=== PATIENT | female | born 1940 | race Caucasian/White ===

== ENCOUNTER 2017-10-23 09:48 | Emergency (ER) | payer OTHER ==
--- NOTE | 2017-10-23 10:41 | EKG ---
Test Date: 2017-10-23 Test Time: 10:28:50 Farm Tractor Operator: LILLIAN MEASUREMENT RESULTS: Intervals: Rate: 96 CA: 204 QRSD: 138 QT: 384 QTc: 485 [place]: P: 51 CA: 204 QRS: 94 T: -16 INTERPRETIVE STATEMENTS: Normal sinus rhythm Right bundle branch block T wave abnormality, consider inferior ischemia Abnormal ECG Compared to ECG 03/29/2016 18:28:24 T-wave abnormality now present Possible ischemia now present First degree AV block no longer present Electronically Signed On 10-23-17 10:40:44 CDT by Bear Douglas
[2017-10-23] MEDS ORDERED: ALBUTEROL 2.5 MG/3 ML NEB SOL ONE ×2 (10:55→12:27)
[2017-10-23] MEDS ORDERED: ASPIRIN 81 MG CHEWABLE TABLET ONE ×2 (10:55→11:13)
[2017-10-23] MEDS ORDERED: IPRATROPIUM BROM 0.5MG/2.5ML ONE (10:55)
[2017-10-23 11:10] LABS: Absolute Lymphocytes (CBC) 1.6 K/uL (0.7-4.9); Absolute Monocytes 0.8 K/uL (0.1-1.3); Absolute Neutrophil 11.4 K/uL (1.8-8.0); Basophils % 0.1 % (0-1.3); Eosinophils % 0.2 % (0-4.4); Hematocrit 41.8 % (36.0-45.0); Lymphocytes % 11.6 % (15.3-44.8); MCV 88.5 fL (80-100); MPV 8.4 fL (7.6-11.3); Monocytes % 6.1 % (3.3-12.3); RBC Red Blood Cell Count 4.72 M/uL (3.86-4.86)
[2017-10-23 11:13] LABS: Protime INR 1.14
--- NOTE | 2017-10-23 11:16 | RAD REPORT ---
EXAM DESCRIPTION: Sara Dickinson (2 Views)10/23/2017 10:59 am CLINICAL HISTORY: Cough COMPARISON: 2007 FINDINGS: A nodular opacity overlying the right lung apex is unchanged from the prior exam and like ly is benign. The lungs appear clear of acute infiltrate. The heart is normal size IMPRESSION: No acute abnormalities displayed
[2017-10-23 11:23] LABS: Albumin 3.6 g/dL (3.4-5.0); Bilirubin Direct 0.2 mg/dL (0-0.2); Bilirubin Total 0.7 mg/dL (0.2-1.0); Magnesium 1.9 mg/dL (1.8-2.4); Potassium 3.7 mmol/L (3.5-5.1)
[2017-10-23] MEDS ORDERED: CEFTRIAXONE/SWI 1gm 2 GM/20 ML SYR ONE (12:01)
[2017-10-23] MEDS ORDERED: ONDANSETRON 4 MG/2 ML VIAL ONE (12:27)
[2017-10-23] MEDS ORDERED: AZITHROMYCIN IV 500 MG in NA CHLORIDE 0.9% 250 ML IVPB ONE (13:00)
--- NOTE | 2017-10-23 13:27 | ER ---
Nurse's Notes [facility] Name: Kourtney Hassan Age: 77 yrs Sex: Female : 1940 Arrival Date: 10/23/2017 Time: 09:52 Bed 23 Private MD: Diagnosis: Acute Upper Respiaratory Infection Presentation: 10/23 09:53 Presenting complaint: EMS states: not feeling well for 3-4 days. c/o productive cough ss and intermittent dizziness. Transition of care: patient was not received from another setting of care. Onset of symptoms was October 20, 2017. Risk Assessment: Do you want to hurt yourself or someone else? Patient reports no desire to harm self or others. Care prior to arrival: None. 09:53 Method Of Arrival: EMS: [facility] ss 09:53 Acuity: ROSETTE 3 ss 12:56 Initial Sepsis Screen: Does the patient meet any 2 criteria? RR > 20 per min. HR > 90 ed1 bpm. Yes Does the patient have a suspected source of infection? Yes: Productive cough/pneumonia If YES to both, name of provider notified: Augie Hand MD. Triage Assessment: 10:00 General: Appears in no apparent distress. uncomfortable, Behavior is calm. Pain: Denies aj1 pain. Historical: - Allergies: 09:56 Toradol; ss - Home Meds: 09:56 gabapentin oral oral [Active]; losartan oral oral [Active]; ss - PMHx: 09:56 Glaucoma; Hypertension; neuropathy; ss - PSHx: 09:56 Hysterectomy; Appendectomy; foot surgery; ss - Immunization history:: Adult Immunizations up to date. - Social history:: Smoking status: Patient/guardian denies using tobacco. - Ebola Screening: : Patient denies exposure to infectious person Patient denies travel to an Ebola-affected area in the 21 days before illness onset. - Family history:: not pertinent. - Hospitalizations: : No recent hospitalization is reported. Screenin:39 Abuse screen: Denies threats or abuse. Denies injuries from another. Nutritional aj1 screening: No deficits noted. Tuberculosis screening: No symptoms or risk factors identified. 13:39 Fall Risk No fall in past 12 months (0 pts). No secondary diagnosis (0 pts). IV access ed1 (20 points). Ambulatory Aid- None/Bed Rest/Nurse Assist (0 pts). Gait- Weak (10 pts.). Mental Status- Oriented to own ability (0 pts). Total Núñez Fall Scale indicates Low Risk Score (25-44 pts). Fall prevention measures have been instituted. Side Rails Up X 2 Frequent Obs/Assesments occuring Family Present and informed to notify staff if they need to leave bedside As available Patient and Family Educated on Fall Prevention Program and strategies. Assessment: 10:00 General: Appears in no apparent distress. uncomfortable, Behavior is calm, cooperative, aj1 appropriate for age. Pain: Denies pain. Neuro: Level of Consciousness is awake, alert, obeys commands, Oriented to person, place, time, situation, Speech is normal, Facial symmetry appears normal. Cardiovascular: Denies chest pain, shortness of breath, Heart tones S1 S2 present Patient's skin is warm and dry. Rhythm is sinus tachycardia. Respiratory: Reports cough that is productive, Airway is patent Respiratory effort is even, unlabored, Respiratory pattern is regular, symmetrical, Breath sounds are coarse Breath sounds with crackles Breath sounds with wheezes bilaterally. Denies shortness of breath. GI: No signs and/or symptoms were reported involving the gastrointestinal system. : No signs and/or symptoms were reported regarding the genitourinary system. EENT: No signs and/or symptoms were reported regarding the EENT system. Derm: No signs and/or symptoms reported regarding the dermatologic system. Skin is pink, warm \T\ dry. normal. Musculoskeletal: No signs and/or symptoms reported regarding the musculoskeletal system. Circulation, motion, and sensation intact. 11:13 Reassessment: Patient appears in no apparent distress at this time. No changes from aj1 previously documented assessment. Patient and/or family updated on plan of care and expected duration. Pain level reassessed. Patient is alert, oriented x 3, equal unlabored respirations, skin warm/dry/pink. 12:34 Reassessment: Patient appears in no apparent distress at this time. No changes from aj1 previously documented assessment. Patient and/or family updated on plan of care and expected duration. Pain level reassessed. Patient is alert, oriented x 3, equal unlabored respirations, skin warm/dry/pink. Patient states that she is feeling better, she feels like she is coughing less, and less hard when she does cough. 13:39 Reassessment: Patient appears in no apparent distress at this time. Patient and/or ed1 family updated on plan of care and expected duration. Pain level reassessed. Patient is alert, oriented x 3, equal unlabored respirations, skin warm/dry/pink. Patient denies pain at this time. Patient states feeling better. Patient states symptoms have improved. Vital Signs: 10:00 BP 147 / 75; Pulse 106; Resp 22; Temp 98.3(O); Pulse Ox 93% on R/A; Pain 0/10; aj1 11:06 BP 133 / 87; Pulse 96; Resp 20; Pulse Ox 95% on R/A; mt 12:01 BP 139 / 79; Pulse 87; Resp 22; Pulse Ox 93% on R/A; mt 12:31 BP 148 / 83; Pulse 75; Resp 19; Pulse Ox 100% on Nebulizer Mask; mt 13:06 BP 127 / 67; Pulse 88; Resp 20; Pulse Ox 98% on R/A; mt ED Course: 09:52 Patient arrived in ED. em1 09:55 Triage completed. ss 09:59 Augie Hand MD is Attending Physician. wa 10:00 No provider procedures requiring assistance completed. aj1 10:00 Arm band placed on. aj1 10:00 Patient has correct armband on for positive identification. Bed in low position. Call aj1 light in reach. Side rails up X 1. barrel washer machine on. Pulse ox on. NIBP on. 10:34 Initial lab(s) drawn, by az, sent to lab. First set of blood cultures drawn Right jp3 Forarm. 10:35 Melody Valera, RN is Primary Nurse. aj1 10:37 EKG done, by farm technician. reviewed by Augie Hand MD. at1 10:55 Inserted saline lock: 22 gauge in right forearm, using aseptic technique. Blood jp3 collected. 10:56 XRAY Chest Pa And Lat (2 Views) In Process Unspecified. EDMS 11:05 Second set of blood cultures drawn Left A/C via 23-gauge butterfly needle. jp3 12:56 Primary Nurse role handed off by Melody Valera, RN ed1 12:56 Noemi Sanchez LVN is Primary Nurse. ed1 13:39 IV discontinued, intact, bleeding controlled, No redness/swelling at site. Pressure ed1 dressing applied. Administered Medications: 11:13 Drug: Albuterol 2.5 mg Route: Inhalation; aj1 11:13 Drug: AtroVENT Aerosol 0.5 mg Route: Inhalation; aj1 11:13 Drug: Aspirin Chewable Tablet 324 mg Route: PO; aj1 13:38 Follow up: Response: No adverse reaction ed1 12:03 Drug: Rocephin - (cefTRIAXone) 2 grams Route: IVPB; Infused Over: 30 mins; Site: right aj1 antecubital; 13:38 Follow up: Response: No adverse reaction; IV Status: Completed infusion ed1 12:33 Drug: Zithromax 500 mg Route: IVPB; Infused Over: 1 hrs; Site: right antecubital; aj1 13:38 Follow up: Response: No adverse reaction; IV Status: Completed infusion ed1 12:33 Drug: Albuterol 2.5 mg Route: Inhalation; aj1 13:38 Not Given (Patient Refused): Zofran 4 mg IVP once; over 2 minutes ed1 Outcome: 13:26 Discharge ordered by MD. vyas 13:39 Discharged to home via wheelchair, with friend. ed1 13:39 Condition: good 13:39 Discharge instructions given to patient, friend, Instructed on discharge instructions, follow up and referral plans. medication usage, Demonstrated understanding of instructions, follow-up care, medications, Prescriptions given X 3. 13:41 Patient left the ED. ed1 Signatures: Dispatcher [employer] EDMS Melody Valera RN RN aj1 Akbar Mcintosh em1 Keli Gracia RN RN ss Noemi Sanchez, MIXING PLACE SUPERVISOR MIXING PLACE SUPERVISOR ed1 Blanca parker, hand i cutter EKG Tank1 Elida Wu mt, William, MD MD wa Pisarski, Jacob jp3 Corrections: (The following items were deleted from the chart) 10:48 10:39 General: Appears in no apparent distress. uncomfortable, Behavior is calm, aj1 cooperative, appropriate for age, aj1 :48 10:39 Pain: Denies pain. aj1 aj1 10:48 10:39 Neuro: Level of Consciousness is awake, alert, obeys commands, Oriented to aj1 person, place, time, situation, Speech is normal, Facial symmetry appears normal, aj1 :48 10:39 Cardiovascular: Denies chest pain, shortness of breath, Heart tones S1 S2 present aj1 Patient's skin is warm and dry. Rhythm is sinus tachycardia aj1 : 10:39 Respiratory: Reports cough that is productive, Airway is patent Respiratory aj1 effort is even, unlabored, Respiratory pattern is regular, symmetrical, Breath sounds are coarse Breath sounds with crackles Breath sounds with wheezes bilaterally. Denies shortness of breath aj1 10:39 GI: No signs and/or symptoms were reported involving the gastrointestinal system. aj1 aj1 10:39 : No signs and/or symptoms were reported regarding the genitourinary system. aj1aj1 : 10:39 EENT: No signs and/or symptoms were reported regarding the EENT system. aj1 aj1 10:39 Derm: No signs and/or symptoms reported regarding the dermatologic system. Skin aj1 is pink, warm \T\ dry. normal, aj1 10:39 Musculoskeletal: No signs and/or symptoms reported regarding the musculoskeletal aj1 system. Circulation, motion, and sensation intact. aj1
--- NOTE | 2017-10-23 13:27 | EDPHYS ---
Physician Documentation [facility] Name: Kourtney Hassan Age: 77 yrs Sex: Female : 1940 Arrival Date: 10/23/2017 Time: 09:52 Bed 23 Private MD: ED Physician Augie Hand HPI: 10/23 13:19 This 77 yrs old Female presents to ER via EMS with complaints of Cough. wa 13:19 The patient or guardian reports cough, that is constant, with productive sputum, that wa is yellow, nasal congestion. denies SOB. admits to fever yesterday. Onset: The symptoms/episode began/occurred 3 day(s) ago. Severity of symptoms: At their worst the symptoms were moderate, in the emergency department the symptoms are actually worse. Modifying factors: The symptoms are alleviated by nothing, the symptoms are aggravated by cough. Associated signs and symptoms: Pertinent positives: fever, nausea, rhinorrhea, Pertinent negatives: chest pain, diarrhea, ear ache, sore throat, vomiting. The patient has not experienced similar symptoms in the past. The patient has not recently seen a physician. Historical: - Allergies: 09:56 Toradol; ss - Home Meds: 09:56 gabapentin oral oral [Active]; losartan oral oral [Active]; ss - PMHx: 09:56 Glaucoma; Hypertension; neuropathy; ss - PSHx: 09:56 Hysterectomy; Appendectomy; foot surgery; ss - Immunization history:: Adult Immunizations up to date. - Social history:: Smoking status: Patient/guardian denies using tobacco. - Ebola Screening: : Patient denies exposure to infectious person Patient denies travel to an Ebola-affected area in the 21 days before illness onset. - Family history:: not pertinent. - Hospitalizations: : No recent hospitalization is reported. ROS: 13:21 Constitutional: Negative for fever, chills, and weight loss, Eyes: Negative for injury, wa pain, redness, and discharge, ENT: Negative for injury, pain, and discharge, Neck: Negative for injury, pain, and swelling, Cardiovascular: Negative for chest pain, palpitations, and edema, Abdomen/GI: Negative for abdominal pain, nausea, vomiting, diarrhea, and constipation, Back: Negative for injury and pain, : Negative for injury, bleeding, discharge, and swelling, MS/Extremity: Negative for injury and deformity, Skin: Negative for injury, rash, and discoloration, Neuro: Negative for headache, weakness, numbness, tingling, and seizure. 13:21 Respiratory: Positive for cough, with yellow sputum, Negative for shortness of breath. 13:21 All other systems are negative. Exam: 13:21 Constitutional: This is a well developed, well nourished patient who is awake, alert, wa and in no acute distress. Head/Face: Normocephalic, atraumatic. Eyes: Pupils equal round and reactive to light, extra-ocular motions intact. Lids and lashes normal. Conjunctiva and sclera are non-icteric and not injected. Cornea within normal limits. Periorbital areas with no swelling, redness, or edema. ENT: Nares patent. No nasal discharge, no septal abnormalities noted. Tympanic membranes are normal and external auditory canals are clear. Oropharynx with no redness, swelling, or masses, exudates, or evidence of obstruction, uvula midline. Mucous membranes moist. Neck: Trachea midline, no thyromegaly or masses palpated, and no cervical lymphadenopathy. Supple, full range of motion without nuchal rigidity, or vertebral point tenderness. No Meningismus. Chest/axilla: Normal chest wall appearance and motion. Nontender with no deformity. No lesions are appreciated. Cardiovascular: Regular rate and rhythm with a normal S1 and S2. No gallops, murmurs, or rubs. Normal PMI, no JVD. No pulse deficits. Abdomen/GI: Soft, non-tender, with normal bowel sounds. No distension or tympany. No guarding or rebound. No evidence of tenderness throughout. Back: No spinal tenderness. No costovertebral tenderness. Full range of motion. Skin: Warm, dry with normal turgor. Normal color with no rashes, no lesions, and no evidence of cellulitis. MS/ Extremity: Pulses equal, no cyanosis. Neurovascular intact. Full, normal range of motion. Neuro: Awake and alert, GCS 15, oriented to person, place, time, and situation. Cranial nerves II-XII grossly intact. Motor strength 5/5 in all extremities. Sensory grossly intact. Cerebellar exam normal. Normal gait. Psych: Awake, alert, with orientation to person, place and time. Behavior, mood, and affect are within normal limits. 13:21 Respiratory: the patient does not display signs of respiratory distress, Respirations: normal, Breath sounds: breath sounds diminished on both sides. Vital Signs: 10:00 BP 147 / 75; Pulse 106; Resp 22; Temp 98.3(O); Pulse Ox 93% on R/A; Pain 0/10; aj1 11:06 BP 133 / 87; Pulse 96; Resp 20; Pulse Ox 95% on R/A; mt 12:01 BP 139 / 79; Pulse 87; Resp 22; Pulse Ox 93% on R/A; mt 12:31 BP 148 / 83; Pulse 75; Resp 19; Pulse Ox 100% on Nebulizer Mask; mt 13:06 BP 127 / 67; Pulse 88; Resp 20; Pulse Ox 98% on R/A; mt MDM: 09:59 Patient medically screened. de 13:22 Differential Diagnosis: Obstructed Airway Bronchitis Upper Respiratory Infection wa Allergic Rhinitis Viral Syndrome Pneumonia. Data reviewed: vital signs, nurses notes, lab test result(s). 13:24 Test interpretation: by ED physician or midlevel provider: labs noted for elevated BUN wa and leukocytosis. CXR negative. . Response to treatment: the patient's symptoms have markedly improved after treatment. ED course: had nebs. treated empirically with abx. states feels much better. 13:30 Test interpretation: by ED physician or midlevel provider: EKG: R 96. RBBB with strain. 10/23 10:15 Order name: Blood Culture Adult (2) 10/23 10:15 Order name: BMP; Complete Time: 11:47 10/23 10:15 Order name: CBC with Diff; Complete Time: 11:47 10/23 10:15 Order name: CPK; Complete Time: 11:49 10/23 10:15 Order name: Hepatic Function; Complete Time: 11:48 10/23 10:15 Order name: Magnesium; Complete Time: 11:49 10/23 10:15 Order name: XRAY Chest Pa And Lat (2 Views); Complete Time: 11:48 10/23 10:15 Order name: PT-INR; Complete Time: 11:48 10/23 10:15 Order name: Troponin (emerg Dept Use Only); Complete Time: 11:49 10/23 10:15 Order name: EKG; Complete Time: 10:16 10/23 10:15 Order name: Cardiac monitoring; Complete Time: de 10/23 10:15 Order name: EKG - Nurse/Tech; Complete Time: de 10/23 10:15 Order name: IV Saline Lock; Complete Time: de 10/23 10:15 Order name: Labs collected and sent; Complete Time: de 10/23 10:15 Order name: O2 Per Protocol; Complete Time: de 10/23 10:15 Order name: O2 Sat Monitoring; Complete Time: : de Administered Medications: 11:13 Drug: Albuterol 2.5 mg Route: Inhalation; aj1 11:13 Drug: AtroVENT Aerosol 0.5 mg Route: Inhalation; aj1 11:13 Drug: Aspirin Chewable Tablet 324 mg Route: PO; aj1 13:38 Follow up: Response: No adverse reaction ed1 12:03 Drug: Rocephin - (cefTRIAXone) 2 grams Route: IVPB; Infused Over: 30 mins; Site: right aj1 antecubital; 13:38 Follow up: Response: No adverse reaction; IV Status: Completed infusion ed1 12:33 Drug: Zithromax 500 mg Route: IVPB; Infused Over: 1 hrs; Site: right antecubital; aj1 13:38 Follow up: Response: No adverse reaction; IV Status: Completed infusion ed1 12:33 Drug: Albuterol 2.5 mg Route: Inhalation; aj1 13:38 Not Given (Patient Refused): Zofran 4 mg IVP once; over 2 minutes ed1 Disposition: 10/23/17 13:26 Discharged to Home. Impression: Acute Upper Respiaratory Infection. - Condition is Stable. - Discharge Instructions: Upper Respiratory Infection, Adult, [id number], Cough, Adult, [id number]-[id number]. - Prescriptions for Zithromax Z- Alcides 250 mg Oral Tablet - take 1 tablet by ORAL route as directed for 5 days Day 1 - take two (2) tablets one time. Day 2, 3, 4 , 5 take one (1) tablet once daily.; 6 tablet. Prednisone 20 mg Oral Tablet - take 2 tablets by ORAL route once daily for 3 days; 6 tablet. Albuterol Sulfate 90 mcg/actuation - inhale 1-2 puff by INHALATION route every 4-6 hours; 1 Inhaler. - Medication Reconciliation Form, Thank You Letter, Antibiotic Education, Prescription Opioid Use form. - Follow up: Private Physician; When: 2 - 3 days; Reason: Re-evaluation by your physician. - Problem is new. - Symptoms have improved. - Notes: take medicines as prescribed. follow up with your doctor or return here immediately for rapidly worsening concerns Signatures: Dispatcher [employer] EDNH Melody Valera RN RN aj1 Keli Garcia RN RN Noemi Sanchez LVN GUARD DRIVER ed1 Augie Hand MD MD wa Corrections: (The following items were deleted from the chart) 13:41 13:26 10/23/2017 13:26 Discharged to Home. Impression: Acute Upper Respiaratory ed1 Infection. Condition is Stable. Forms are Medication Reconciliation Form, Thank You Letter, Antibiotic Education, Prescription Opioid Use. Follow up: Private Physician; When: 2 - 3 days; Reason: Re-evaluation by your physician. Problem is new. Symptoms have improved. wa
[2017-10-23 16:01] VITALS: TEMP 98.3
[2017-10-23 16:06] VITALS: BP 127/67; O2SAT 98
== END 2017-10-23 13:41 | disposition home or self-care (01) ==
LOC: ER 09:48
DX: J06.9 Acute upper respiratory infection, unspecified (principal); I10 Essential (primary) hypertension; Z88.6 Allergy status to analgesic agent
CPT/HCPCS: 36415; 71046; 80048; 80076; 82550; 83735; 84484; 85025; 85610; 87040 ×2; 93005; 96365; 96368; 99285; J0456; J0696; J2405

== ENCOUNTER 2021-07-21 19:30 | Emergency (ER) | payer OTHER ==
--- OUTSIDE RECORDS SUMMARY | 2021-07-21 19:33 | XMS REPORT | Continuity of Care Document ---
:1940 Author Organization [facility] t Address [address] [place] [address] [address] [place] [address] Care Team Providers Name Role Phone EVELINA Attending Clinician Unavailable MD MER LUZ Attending Clinician Unavailable NATTY Attending Clinician Unavailable BREE Attending Clinician Unavailable EVELINA Admitting Clinician Unavailable MD MER LUZ Admitting Clinician Unavailable BREE Admitting Clinician Unavailable Payers Payer Name Policy Type Policy Number Effective Date Expiration Date S ource [employer] MEDICARE ADV [id number] 2018 00:00:00 Problems This patient has no known problems. Allergies, Adverse Reactions, Alerts Allergy Allergy Status Severity Reaction(s) Onset Inactive Treating Comm ents Source Name Type Date Date Clinician TRAMADOL DRUG Active N/V 2018-05 [facility] 2-10 ity of 00:00: [address] Medications This patient has no known medications. Procedures This patient has no known procedures. Encounters Start End Encounter Admission Attending Care Care Encounter Source Date/Time Date/Time Type Type Clinicians Facility Department ID 2020-12-19 2020-12-[address] [facility] [id number] [place] 00:00:00 00:00:00 GEORGE [address] 2020-12-19 2020-12-19 Outpatient DEEPIKA LUZ [facility] [id number] [place] 00:00:00 00:00:[address] 2020-12-19 2020-12-19 Outpatient DEEPIKA LUZ [facility] [id number] [place] 00:00:00 00:00:[address] 2020-12-15 2020-12-15 Outpatient [facility] [id number] [place] 00:00:00 00:00:00 TEDDY [address] 2020-11-22 2020-11-22 Outpatient [facility] [id number] [place] 00:00:00 00:00:00 TEDDY [address] 2020-11-17 2020-11-17 Outpatient BREE [facility] [id number] [place] 00:00:00 00:00:00 TEDDY [address] [facility] 2020-11-15 2020-11-15 Outpatient BREE [facility] [id number] [place] 00:00:00 00:00:00 TEDDY [address] [facility] 2019-12-13 2019-12-13 Outpatient [facility] [id number] [facility] 12:20:00 12:20:00 [id number] [facility] 2019-12-13 2019-12-13 Outpatient R [facility] [id number] [facility] 12:20:00 12:20:00 [facility] Results Test Description Test Time Test Comments Results Result Comments Source SARS-CoV-2 (COVID-19) RNA [Presence] in Respiratory sp ecimen by 2020-12-19 14:48:51 RAFFAELE with probe detection Test Item Value Reference Range Interpretation Comme nts SARS-CoV-2 (COVID-19) RNA [Presence] in Respiratory Not detected No t-Detected specimen by RAFFAELE with probe detection (test code = 90880-2) Whether patient is employed in a healthcare setting (test code = 21935-5) Whether the patient has symptoms related to condition of interest (test code = 65859-4) Patient was hospitalized because of this condition (test code = 52489-8) Whether the patient was admitted to intensive care unit (ICU) for condition of interest (test code = 56029-8) Whether patient resides in a congregate care setting (test code = 91546-7)
[2021-07-21] MEDS ORDERED: NA CHLORIDE 0.9% 1,000 ML ONE (20:49)
--- NOTE | 2021-07-21 21:14 | RAD REPORT ---
EXAM DESCRIPTION: CT - Abdomen Pelvis Wo Contrast - 07/21/2021 8:40 pm CLINICAL HISTORY: Abdominal pain. ABD PAIN COMPARISON: No comparisonsAbdomen Pelvis W Contrast dated 03/29/2016; Chest Abdomen Pelvis W Cont dated 06/28/2021 TECHNIQUE: CT imaging of the abdomen and pelvis was performed without contrast. Solid organ, bowel a nd vascular assessment is limited due to lack of IV and oral contrast. All CT scans are performed using dose optimization technique as appropriate and may include automated exposure control or mA/KV adjustment according to patient size. FINDINGS: Linear atelectasis is present in both lung bases. Small hiatal hernia small amount free fluid is seen right upper quadrant anterior to the liver.Cholec ystectomy clips. Mild free fluid is seen about the spleen. Adrenal glands and kidneys show no acute p rocess. Mild soft tissue fullness is seen in the pancreatic uncinate process with several adjacent mi ldly prominent lymph nodes. Mild free fluid is seen in the pelvis. Small fat containing umbilical hernia. Sigmoid diverticulosis coli without diverticulitis. No bowel obstruction or abscess. No free air is present. The osseous structures are within normal limits. IMPRESSION: Mild free fluid has developed in the abdomen and pelvis since the comparative study. A limited non-contrast examination was performed as detailed.
--- NOTE | 2021-07-21 22:09 | EDPHYS ---
Physician Documentation [facility] Name: Kourtney Hassan Age: 80 yrs Sex: Female : 1940 Arrival Date: 07/21/2021 Time: 19:37 Bed 14 Private MD: ED Physician Corby Arciniega HPI: 07/22 07:36 This 80 yrs old Female presents to ER via EMS with complaints of Abd Pain > 50 y/o. kdr 07:36 The patient presents with abdominal pain in the upper abdomen. Onset: The kdr symptoms/episode began/occurred gradually, 4 day(s) ago. The symptoms do not radiate. Associated signs and symptoms: Pertinent positives: anorexia, nausea, vomiting. The symptoms are described as achy, crampy, dull, intermittent, vague, waxing/waning. Modifying factors: The symptoms are alleviated by nothing, the symptoms are aggravated by food. Severity of pain: At its worst the pain was mild moderate in the emergency department the pain has resolved. The patient has experienced similar episodes in the past, a few times. The patient has not recently seen a physician. Historical: - Allergies: 07/21 19:44 Toradol; bb 19:44 tramadol; bb - Home Meds: 19:44 gabapentin Oral [Active]; Metoprolol Tartrate Oral [Active]; Hydralazine Oral [Active]; bb latanoprost ophthalmic (eye) [Active]; - PMHx: 19:44 Glaucoma; Hypertension; neuropathy; Pancreatic cancer; bb - Immunization history:: Client reports receiving the 2nd dose of the Covid vaccine, Moderna. - Social history:: Smoking status: unknown. ROS: 07/22 07:36 Constitutional: Negative for fever, chills, and weight loss, Eyes: Negative for injury, kdr pain, redness, and discharge, Neck: Negative for injury, pain, and swelling, Cardiovascular: Negative for chest pain, palpitations, and edema, Respiratory: Negative for shortness of breath, cough, wheezing, and pleuritic chest pain, Back: Negative for injury and pain, : Negative for injury, bleeding, discharge, and swelling, MS/Extremity: Negative for injury and deformity, Neuro: Negative for headache, weakness, numbness, tingling, and seizure activity. Abdomen/GI: Positive for abdominal pain, nausea, Negative for . Exam: 07:36 Constitutional: This is a well developed, well nourished patient who is awake, alert, kdr and in no acute distress. Head/Face: Normocephalic, atraumatic. Eyes: Pupils equal round and reactive to light, extra-ocular motions intact. Lids and lashes normal. Conjunctiva and sclera are non-icteric and not injected. Cornea within normal limits. Periorbital areas with no swelling, redness, or edema. ENT: Nares patent. No nasal discharge, no septal abnormalities noted. Tympanic membranes are normal and external auditory canals are clear. Oropharynx with no redness, swelling, or masses, exudates, or evidence of obstruction, uvula midline. Mucous membranes moist. Neck: Trachea midline, no thyromegaly or masses palpated, and no cervical lymphadenopathy. Supple, full range of motion without nuchal rigidity, or vertebral point tenderness. No Meningismus. Chest/axilla: Normal chest wall appearance and motion. Nontender with no deformity. No lesions are appreciated. Cardiovascular: Regular rate and rhythm with a normal S1 and S2. No gallops, murmurs, or rubs. Normal PMI, no JVD. No pulse deficits. Respiratory: Lungs have equal breath sounds bilaterally, clear to auscultation and percussion. No rales, rhonchi or wheezes noted. No increased work of breathing, no retractions or nasal flaring. Back: No spinal tenderness. No costovertebral tenderness. Full range of motion. Skin: Warm, dry with normal turgor. Normal color with no rashes, no lesions, and no evidence of cellulitis. MS/ Extremity: Pulses equal, no cyanosis. Neurovascular intact. Full, normal range of motion. Neuro: Awake and alert, GCS 15, oriented to person, place, time, and situation. Cranial nerves II-XII grossly intact. Motor strength 5/5 in all extremities. Sensory grossly intact. Cerebellar exam normal. Normal gait. 07:36 Abdomen/GI: Inspection: abdomen appears normal, obese Bowel sounds: diminished, Palpation: abdomen is soft and non-tender, soft. Vital Signs: 07/21 19:37 BP 149 / 96; Pulse 66; Resp 20 S; Temp 98.6(O); Pulse Ox 97% on R/A; Weight 70.31 kg bb (R); Height 5 ft. 1 in. (154.94 cm) (R); Pain 3/10; 20:00 BP 172 / 93 LA Supine (auto/reg); Pulse 66 MON; Resp 20; Pulse Ox 98% on R/A; tk1 21:00 BP 178 / 60 LA Supine (auto/reg); Pulse 64 MON; Resp 22; Pulse Ox 96% on R/A; Pain 0/10;tk1 22:00 BP 180 / 63 LA Supine (auto/reg); Pulse 66 MON; Resp 22 S; Temp 98.3(O); Pulse Ox 97% tk1 on R/A; Pain 0/10; 19:37 Body Mass Index 29.29 (70.31 kg, 154.94 cm) bb MDM: 22:07 Patient medically screened. kdr 07/22 07:36 Data reviewed: vital signs, nurses notes, lab test result(s), radiologic studies. kdr Counseling: I had a detailed discussion with the patient and/or guardian regarding: the historical points, exam findings, and any diagnostic results supporting the discharge/admit diagnosis, lab results, radiology results, the need for outpatient follow up. 07/21 19:45 Order name: CT Abd/Pelvis - Without Contrast; Complete Time: 21:48 kdr 07/21 19:45 Order name: IV Saline Lock; Complete Time: 22:21 kdr Administered Medications: 07/21 20:57 Drug: NS 0.9% 1000 ml Route: IV; Rate: 1000 ml; Infused Over: 60 mins; Site: right tk1 forearm; Delivery: Primary tubing; 22:20 Follow up: IV Status: Completed infusion; IV Intake: 1000ml tk1 Disposition Summary: 07/21/21 22:07 Discharge Ordered Location: Home kdr Problem: new kdr Symptoms: have improved kdr Condition: Stable kdr Diagnosis - Abdominal pain, Generalized kdr - Malignant ascites kdr Followup: kdr - With: Naomy Garay MD - When: 2 - 3 days - Reason: If symptoms return, Further diagnostic work-up, Recheck today's complaints, Continuance of care, Re-evaluation by your physician Discharge Instructions: - Discharge Summary Sheet kdr - Ascites kdr - Abdominal Pain, Adult, [id number] kdr - Pancreatic Cancer kdr Forms: - Medication Reconciliation Form kdr - Thank You Letter kdr Prescriptions: - Zofran 4 mg Oral Tablet - take 1 tablet by ORAL route every 12 hours As needed Take one or two tablets kdr every six to eight hours as needed for nausea and vomiting (Pharmacy - please use this Rx directions); 30 tablet; Refills: 0, Product Selection Permitted - Tylenol-Codeine #3 300 mg-30 mg Oral - take 1 tablet by ORAL route every 4-6 hours As needed; 16 tablet; Refills: 0, kdr Product Selection Permitted Signatures: Dispatcher [employer] FRANCINENC Corby Arciniega MD MD kdr Mary Cevallos RN RN bb Ada Taylor tk1 Corrections: (The following items were deleted from the chart) 22:21 20:25 Urine Dipstick-Ancillary ordered. [facility] tk1 22:22 19:45 Labs collected and sent ordered. [facility] tk1
--- NOTE | 2021-07-21 22:09 | ER ---
Nurse's Notes [facility] Name: Kourtney Hassan Age: 80 yrs Sex: Female : 1940 Arrival Date: 07/21/2021 Time: 19:37 Bed 14 Private MD: Diagnosis: Abdominal pain, Generalized;Malignant ascites Presentation: 07/21 19:37 Initial Sepsis Screen: Does the patient meet any 2 criteria? No. Patient's initial bb sepsis screen is negative. Does the patient have a suspected source of infection? No. Patient's initial sepsis screen is negative. Risk Assessment: Do you want to hurt yourself or someone else? Patient reports no desire to harm self or others. Onset of symptoms was July 18, 2021. 19:37 Acuity: ROSETTE 3 bb 19:38 Chief complaint: Patient states: she has been having intermittent abdominal pain for bb the last 3 or 4 days which has worsened today. Coronavirus screen: At this time, the client does not indicate any symptoms associated with coronavirus-19. Ebola Screen: No symptoms or risks identified at this time. 19:38 Method Of Arrival: EMS: [facility] bb Historical: - Allergies: 19:44 Toradol; bb 19:44 tramadol; bb - Home Meds: 19:44 gabapentin Oral [Active]; Metoprolol Tartrate Oral [Active]; Hydralazine Oral [Active]; bb latanoprost ophthalmic (eye) [Active]; - PMHx: 19:44 Glaucoma; Hypertension; neuropathy; Pancreatic cancer; bb - Immunization history:: Client reports receiving the 2nd dose of the Covid vaccine, Moderna. - Social history:: Smoking status: unknown. Screenin:07 Abuse screen: Denies threats or abuse. Denies injuries from another. Nutritional tk1 screening: No deficits noted. Tuberculosis screening: No symptoms or risk factors identified. Fall Risk None identified. Assessment: 20:07 General: Appears slender, well groomed, well developed, Behavior is cooperative, tk1 appropriate for age, crying. 20:07 Pain: Complains of pain in abdomen Pain does not radiate. Pain currently is 3 out of 10 tk1 on a pain scale. Quality of pain is described as crampy, Pain began gradually, Is intermittent. Neuro: Level of Consciousness is awake, alert, obeys commands, Oriented to person, place, time, Reclamation Furnace Operator are equal bilaterally Moves all extremities. Gait is steady, Speech is normal, Facial symmetry appears normal. Cardiovascular: Capillary refill < 3 seconds is brisk in bilateral fingers Clubbing of nail beds is absent. Respiratory: Airway is patent Respiratory effort is even, unlabored, Respiratory pattern is regular, symmetrical. 20:07 GI: Abdomen is flat, non-distended, Bowel sounds present X 4 quads. Abd is soft and non tk1 tender X 4 quads. Reports lower abdominal pain, cramping. : No deficits noted. No signs and/or symptoms were reported regarding the genitourinary system. EENT: No deficits noted. No signs and/or symptoms were reported regarding the EENT system. Derm: No deficits noted. No signs and/or symptoms reported regarding the dermatologic system. Musculoskeletal: No deficits noted. No signs and/or symptoms reported regarding the musculoskeletal system. 22:22 Reassessment: D/C per MD order. Discharge/Prescription instructions given to patient tk1 and daughter per Dr. Arciniega. 22:27 Reassessment: Patient awaiting her daughters return for transport home. tk1 Vital Signs: 19:37 BP 149 / 96; Pulse 66; Resp 20 S; Temp 98.6(O); Pulse Ox 97% on R/A; Weight 70.31 kg bb (R); Height 5 ft. 1 in. (154.94 cm) (R); Pain 3/10; 20:00 BP 172 / 93 LA Supine (auto/reg); Pulse 66 MON; Resp 20; Pulse Ox 98% on R/A; tk1 21:00 BP 178 / 60 LA Supine (auto/reg); Pulse 64 MON; Resp 22; Pulse Ox 96% on R/A; Pain 0/10;tk1 22:00 BP 180 / 63 LA Supine (auto/reg); Pulse 66 MON; Resp 22 S; Temp 98.3(O); Pulse Ox 97% tk1 on R/A; Pain 0/10; 19:37 Body Mass Index 29.29 (70.31 kg, 154.94 cm) bb ED Course: 19:30 Patient has correct armband on for positive identification. Bed in low position. Call tk1 light in reach. Side rails up X2. quality assurance monitor final on. Pulse ox on. NIBP on. Warm blanket given. 19:37 Patient arrived in ED. bb 19:44 Triage completed. bb 19:44 Arm band placed on Patient placed in an exam room, on a stretcher, on satellite project site monitor, bb on pulse oximetry. 19:45 Corby Arciniega MD is Attending Physician. kdr 20:07 Ada Taylor is Primary Nurse. tk1 20:25 Inserted saline lock: 20 gauge in right forearm, using aseptic technique. Unable to tk1 collect lab specimens. Patient refusing to be stuck again. Missed attempt(s): 20 gauge in right antecubital area. 20:25 No provider procedures requiring assistance completed. tk1 20:40 CT Abd/Pelvis - Without Contrast In Process Unspecified. EDMS 22:06 Naomy Garay MD is Referral Physician. kdr 22:22 IV discontinued, intact, bleeding controlled, No redness/swelling at site. Pressure tk1 dressing applied. Administered Medications: 20:57 Drug: NS 0.9% 1000 ml Route: IV; Rate: 1000 ml; Infused Over: 60 mins; Site: right tk1 forearm; Delivery: Primary tubing; 22:20 Follow up: IV Status: Completed infusion; IV Intake: 1000ml tk1 Intake: 22:20 IV: 1000ml; Total: 1000ml. tk1 Outcome: 22:07 Discharge ordered by . kdr 22:22 Discharged to home ambulatory, with family. tk1 22:22 Condition: stable 22:22 Discharge instructions given to patient, family, Instructed on discharge instructions, follow up and referral plans. medication usage, Demonstrated understanding of instructions, follow-up care, medications. 23:18 Patient left the ED. tk1 Signatures: Dispatcher [employer] EDWV Corby Arciniega MD MD kdr Mary Cevallos RN RN bb Ada Taylor tk1 Corrections: (The following items were deleted from the chart) 22:11 19:30 Fall Risk None identified. tk1 tk1 22:11 19:30 Abuse screen: Denies threats or abuse. Denies injuries from another. tk1 tk1 22:11 19:30 Tuberculosis screening: No symptoms or risk factors identified. tk1 tk1 22:11 19:30 Nutritional screening: No deficits noted. tk1 tk1
[2021-07-22 00:32] VITALS: BP 180/63; TEMP 98.3; O2SAT 97
== END 2021-07-21 23:18 | disposition home or self-care (01) ==
LOC: ER 19:30
DX: C25.9 Malignant neoplasm of pancreas, unspecified (principal); R18.0 Malignant ascites; I10 Essential (primary) hypertension; G62.9 Polyneuropathy, unspecified; Z88.5 Allergy status to narcotic agent
CPT/HCPCS: 74176; 96360; 99284; J7030